=== PATIENT | female | born 1990 | race Two or more races ===

== ENCOUNTER 2023-04-05 13:21 | Emergency (ER) | payer OTHER ==
[~2023-04-05] VITALS: Ht 160 cm; Wt 88.9 kg
[2023-04-05] MEDS ORDERED: ASPI81TA31 PO (14:32)
--- NOTE | 2023-04-05 14:33 | NUR ---
[email or web address], medical screening exam in progress
[2023-04-05 14:53] LABS: HEMATOCRIT 36.4 % (31.2-41.9); MEAN CORPUSCULAR HEMOGLOBIN 26.7 uug (24.7-32.8); MEAN CORPUSCULAR VOLUME 80.7 fL (75.5-95.3); PLATELET COUNT (AUTO) 198 K/uL (179-408)
--- NOTE | 2023-04-05 15:59 | NUR ---
Patient discharged to home by Dr Quick in stable condition with brisk steady gait. Written and verbal after care instructions given to patient and spouse. Patient and spouse verbalized understanding and compliance of instructions. Stressed follow up with OB doctor or return to ER for worsening s/s.
[2023-04-05 16:02] VITALS: BP 132/89
== END 2023-04-05 16:03 | disposition home or self-care (01) ==
LOC: ER 13:21
DX: O20.0 Threatened abortion (principal); Z79.82 Long term (current) use of aspirin; Z3A.13 13 weeks gestation of pregnancy
CPT/HCPCS: 36415; 76815; 85025; 86900; 86901; A4663